=== PATIENT | male | born 1975 | race Caucasian/White ===

== ENCOUNTER → 2021-04-15 | Emergency (ER) | payer OTHER ==
[~2021-04-15] VITALS: Ht 185.4 cm; Wt 83.9 kg
[~2021-04-15] MED LIST: KETO10TA2 PO; ZITHROMAX TRI-500 MG PO
== END | disposition home or self-care (01) ==
LOC: ER 07:11
DX: H92.01 Otalgia, right ear (principal); Z20.822 Contact with and (suspected) exposure to COVID-19

== ENCOUNTER 2021-04-20 08:32 | Emergency (ER) | payer OTHER ==
[~2021-04-20] VITALS: Ht 185.4 cm; Wt 83.9 kg
== END 2021-04-20 10:12 ==
LOC: ER 08:32
DX: H60.91 Unspecified otitis externa, right ear (principal)